=== PATIENT | female | born 1980 | race Caucasian/White ===

== ENCOUNTER 2019-08-01 09:22 | Outpatient (CLI) | payer OTHER, SELFPAY ==
--- NOTE | ~2019-08-01 | MM_ITS ---
EXAMINATION: MM screening juan alberto BI w brent HISTORY: Screening mammogram TECHNIQUE: Craniocaudal and mediolateral oblique 3-D tomosynthesis images were obtained and synthetic 2-D images were generated. CAD analysis was submitted and interpreted. COMPARISON: 04/29/2012 BREAST PARENCHYMAL COMPOSITION: There are scattered areas of fibroglandular density. FINDINGS: There is no evidence of suspicious mass, calcification, or architectural distortion to sugg est malignancy in either breast. There has been no suspicious interval change. IMPRESSION: 1. No mammographic evidence of malignancy. 2. Recommend routine screening mammography in one year. BI-RADS Category 1: Negative Reviewed, dictated and finalized at location A.
== END 2019-08-01 09:23 | disposition home or self-care (01) ==
LOC: ANHIMG 09:27
PROVIDERS: PCP Obstetrics & Gynecology; Visit Provider Obstetrics & Gynecology
DX: Z12.31 Encounter for screening mammogram for malignant neoplasm of breast (principal)
CPT/HCPCS: 77063; 77067

== ENCOUNTER 2023-12-19 01:00 | Day surgery (SDC) | payer OTHER, SELFPAY ==
[2023-11-28 15:08] VITALS: BMI 30.6
[2023-12-19 12:42] VITALS: BP 120/71; PULSE 81; RESP 16; TEMP 36.9; O2SAT 99; BMI 30.4
--- NOTE | 2023-12-19 13:04 | WPDANESEPPF ---
Anes - Initial Pre Proc Eval Procedure: Operation Date: 12/19/23 13:30 Proposed Procedures p Screening Colonoscopy - Onseimo Dickson MD Date/Time: 12/19/23 13:04 Surgeon: Onesimo Dickson MD Pre Op Diagnosis: screening neoplasm of colon Patient Data Age: 43 Gender: F Height: 1.63 m Weight: 80.4 kg Last Vital Signs Temp 98.4 F 12/19/23 12:42 Pulse 81 12/19/23 12:42 Resp 16 12/19/23 12:42 BP 120/71 12/19/23 12:42 Pulse Ox 99 12/19/23 12:42 O2 Del Method Room Air 12/19/23 12:42 Allergies Allergy/AdvReac Type Severity Reaction Status Date / Time hydroxychloroquine Allergy Unknown Rash Verified 12/19/23 12:50 Home Medications Medication Instructions Recorded Confirmed Type multivitamin (Daily Multi-Vitamin 1 tablet PO DAILY 09/04/23 12/19/23 History tablet) Patient hx anesthesia problems: none Family hx anesthesia problems: none Results Review: All pre-operative results and documents have been reviewed as part of the pre-operative evaluation. [facility] Past Medical History Medical History (Updated 09/04/23 @ 11:12 by Fern Ann APRN) Arthritis Asthma delivery delivered Post endometrial ablation syndrome Surgical History Surgical History (Updated 09/04/23 @ 10:38 by Miranda Tamayo MA) History of tubal ligation Hx of biopsy Status post dilatation and curettage Family History Family History (Updated 09/04/23 @ 10:41 by Miranda Tamayo MA) Grandparent Depression Hypertension Family history of eczema Family history of osteoarthritis Cerebrovascular accident Family history of hearing loss Mother Hypertension Patient's mother is in good health Family history of migraine headaches Sibling Asthma Patient's brother is in good health Family history of allergic disorder Family history of kidney disease Father Family history of osteoarthritis Patient's father is in good health Hypertension Malignant neoplasm of prostate Grandparent Hypertension Diabetes mellitus Heart disease Cerebrovascular accident Grandparent Hypertension Heart disease History of ETOH abuse Social History Social History (Updated 09/04/23 @ 10:44 by Miranda Tamayo MA) Years smoked: 3 Smoking status: Former smoker Tobacco type: cigarettes Alcohol intake: current Drinks per week: 4 Substance use: never Substance use type: does not use Do You Feel Safe in your Home?: Yes Lack of Transportation: No Lack of Food: Never True Current Housing: I Have Housing Concerned About Future Housing: No Difficulty Paying Gas/Electric Bills: No Difficulty Paying for Meds: No Currently Unemployed: No Education: Bachelor's Degree Difficulty w/ Childcare or Family Care: No Living arrangements: with family 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 Informed Consent: The patient's anesthetic plan and its attendant risks and benefits were discussed with the patient/family/POA. Questions were solicited and answers provided to the satisfaction of the patient/family/POA.
[2023-12-19] MEDS: LACTATED RINGERS 1,000 ML 150 ML IV CONT (13:19)
--- NOTE | 2023-12-19 13:24 | PM.HPGS ---
History of Present Illness History of Present Illness Consent: Risks, benefits, and alternatives have been discussed and questions answered. Patient agrees to proceed with procedure. Chief complaint: screening neoplasm of colon Narrative: Miranda Foley is a 43 year old female here for first screening colonoscopy Review of Systems Review of Systems: All systems reviewed & are unremarkable except as noted in HPI and below PMFSH Past Medical History Medical History (Updated 09/04/23 @ 11:12 by Fern Ann APRN) Arthritis Asthma delivery delivered Post endometrial ablation syndrome Surgical History Surgical History (Updated 09/04/23 @ 10:38 by Miranda Tamayo MA) History of tubal ligation Hx of biopsy Status post dilatation and curettage Family History Family History (Updated 09/04/23 @ 10:41 by Miranda Tamayo MA) Grandparent Depression Hypertension Family history of eczema Family history of osteoarthritis Cerebrovascular accident Family history of hearing loss Mother Hypertension Patient's mother is in good health Family history of migraine headaches Sibling Asthma Patient's brother is in good health Family history of allergic disorder Family history of kidney disease Father Family history of osteoarthritis Patient's father is in good health Hypertension Malignant neoplasm of prostate Grandparent Hypertension Diabetes mellitus Heart disease Cerebrovascular accident Grandparent Hypertension Heart disease History of ETOH abuse Social History Social History (Updated 09/04/23 @ 10:44 by Miranda Tamayo MA) Years smoked: 3 Smoking status: Former smoker Tobacco type: cigarettes Alcohol intake: current Drinks per week: 4 Substance use: never Substance use type: does not use Do You Feel Safe in your Home?: Yes Lack of Transportation: No Lack of Food: Never True Current Housing: I Have Housing Concerned About Future Housing: No Difficulty Paying Gas/Electric Bills: No Difficulty Paying for Meds: No Currently Unemployed: No Education: Bachelor's Degree Difficulty w/ Childcare or Family Care: No Living arrangements: with family 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 Gender identity (if verbalized by the patient): Female Spiritual care concerns: No Agree to blood products: Yes Meds Home Medications and Allergies Home Medications Medication Instructions Recorded Confirmed Type multivitamin (Daily Multi-Vitamin 1 tablet PO DAILY 09/04/23 12/19/23 History tablet) Allergies Allergy/AdvReac Type Severity Reaction Status Date / Time hydroxychloroquine Allergy Unknown Rash Verified 12/19/23 12:50 Vital Signs Vital Signs - 24 hr 12/19/23 12:42 Temperature 98.4 F Pulse Rate 81 Respiratory Rate 16 Blood Pressure 120/71 Pulse Oximetry 99 Oxygen Delivery Room Air Exam Const: General: comfortable and no acute distress HENMT: Face/Nose/Sinus: Normal nares present Eyes: General: appearance normal, both eyes and all related structures Neck: Neck: no JVD Resp: Auscultation: clear to auscultation bilaterally Cardio: Rate: regular rate Rhythm: regular rhythm GI: Inspection: non-distended GI Palp: Yes Soft to palpation Skin: General skin exam: normal color Neuro: General: gait normal Speech: normal speech Extrem: General: normal to inspection Psych: Mental Status: mental status grossly normal Assessment and Plan Assessment and plan (1) Screening for colon cancer: Code(s): Z12.11 - Encounter for screening for malignant neoplasm of colon Status: Acute Assessment and Plan: colonoscopy
[2023-12-19 13:41] VITALS: BP 91/49; PULSE 92; RESP 16; O2SAT 96
[2023-12-19 13:51] VITALS: BP 90/51; PULSE 81; RESP 15; O2SAT 100
[2023-12-19 14:01] VITALS: BP 93/51; PULSE 89; RESP 20; O2SAT 100
[2023-12-19 14:11] VITALS: BP 113/65; PULSE 85; RESP 18; O2SAT 100
[2023-12-19] MEDS: DICLOFENAC SODIUM 0.1% OPHTH SOLN 2.5 ML BOTTLE 1 DROP EACH EYE (14:26)
--- NOTE | 2023-12-19 14:28 | SUR.PHASEII ---
Redness and tearing noted to left eye upon awakening in recovery. New orders received for corneal abrasion protocol from Dr. Garcia (anesthesiologist).
[2023-12-19] MEDS: PROPARACAINE HCL 0.5% 15 ML OPHTH SOLN 1 DROP EACH EYE (14:36)
== END 2023-12-19 14:37 | disposition home or self-care (01) ==
PROVIDERS: PCP Nurse Practitioner Adult Health; Visit Provider Internal Medicine Gastroenterology
PROC: 0DJD8ZZ Inspection of Lower Intestinal Tract, Via Natural or Artificial Opening Endoscopic (ICD-10-PCS; CPT 45378; principal; 2023-12-19 13:30)
DX: Z12.11 Encounter for screening for malignant neoplasm of colon (principal); K64.8 Other hemorrhoids; J45.909 Unspecified asthma, uncomplicated; N99.85 Post endometrial ablation syndrome; E66.9 Obesity, unspecified; Z68.30 Body mass index [BMI] 30.0-30.9, adult; Z98.890 Other specified postprocedural states; Z98.51 Tubal ligation status; Z87.891 Personal history of nicotine dependence; Z80.42 Family history of malignant neoplasm of prostate; Z82.49 Family history of ischemic heart disease and other diseases of the circulatory system
CPT/HCPCS: 45378; A9270; J2003; J2704; J7120

== ENCOUNTER 2024-02-18 21:27 | Emergency (ER) | payer OTHER, SELFPAY ==
--- NOTE | ~2024-02-18 | US_ITS ---
Pelvic ultrasound. Clinical History: Torsion Technique: Realtime transabdominal and transvaginal scanning of the pelvis was performed. Color flow Doppler and Doppler spectral analysis were performed. Findings: The uterus is anteverted. The endometrial stripe has a thickness of 5 mm. No focal mass is identified. Small fluid present in the lower uterine segment/cervical canal. The right ovary measures 4.0 x 4.0 x 3.9 cm. Simple right ovarian cyst measures 3.8 cm in maximum titi meter.. The left ovary measures 5.5 x 4.4 x 6.1 cm. Large left ovarian cyst measures 5.2 x 3.9 x 5.8 cm, with a septation present.. Vascular flow present in both ovaries on Doppler spectral analysis. There is no evidence of free fluid in the cul de sac. Impression: No evidence of torsion. 5.2 x 3.9 x 5.8 cm septated left ovarian cyst. Follow-up ultrasound in 6-8 weeks recommended to reass ess. 3.8 cm simple right ovarian cyst. Reviewed, dictated and finalized at location M. ISITION CONSULTANT Impression: No evidence of torsion. 5.2 x 3.9 x 5.8 cm septated left ovarian cyst. Follow-up ultrasound in 6-8 week s recommended to reassess. 3.8 cm simple right ovarian cyst.
--- NOTE | ~2024-02-18 | CT_ITS ---
EXAMINATION: CT abdomen pelvis w con DATE: 02/19/2024 00:02 INDICATION: Left lower quadrant abdominal pain. TECHNIQUE: Computed tomography (CT) of the abdomen and pelvis was performed with 100 mL Omnipaque 350 intravenous contrast. Automated exposure control and iterative reconstruction technique were employe d. The dose-length product was 806.23 mGy-cm. COMPARISON: None. FINDINGS: The visualized portions of the lung bases demonstrate minimal atelectasis. No pleural effus ion. The heart size is normal. No pericardial effusion. The liver, gallbladder, spleen, pancreas, adr enal glands, and kidneys are normal. There are no dilated loops of bowel. The appendix is normal. The re are no pathologically enlarged lymph nodes. There is physiologic fluid in the pelvis. There is a 3 .3 cm cyst in right ovary. There is a 5.7 cm cyst with thin septation in left ovary. There is moderat e thoracic spondylosis and mild lumbar spondylosis. IMPRESSION: 1. 3.3 cm cyst in right ovary, likely a follicular cyst. 2. 5.7 cm cyst with septation in left ovary, likely benign. Torsion is not excluded. Pelvis ultrasoun d is recommended. Reviewed, dictated and finalized at location A. RISK AND ASSURANCE MANAGER IMPRESSION: 1. 3.3 cm cyst in right ovary, likely a follicular cyst. 2. 5.7 cm cyst with septation in left ovary, likely benign. Torsion is not excl uded. Pelvis ultrasound is recommended.
[2024-02-18 21:29] VITALS: BP 133/83; PULSE 84; RESP 16; TEMP 36.1; O2SAT 100
[2024-02-18 22:21] LABS: Basophils Percent Auto 0.2 % (0.2-1.2); Eosinophils Percent Auto 0.4 % (0-4.4); Hematocrit 41.1 % (37.0-47.0); Immature Granulocyte Absolute 0.04 K/mm3 (0.00-0.031); Immature Granulocyte Percent A 0.4 % (0-0.5); Lymphocytes Absolute Auto 1.88 K/mm3 (0.9-3.2); Lymphocytes Percent Auto 19.3 % (18.3-44.2); Mean Corpuscular HGB Conc 34.1 g/dl (32-36); Mean Corpuscular Hemoglobin 29.4 pg (26-34); Mean Corpuscular Volume 86.2 fl (80-100); Monocytes Absolute Auto 0.4 K/mm3 (0.1-0.6); Neutrophils Absolute Auto 7.4 K/mm3 (1.3-6.7); Neutrophils Percent Auto 75.7 % (45.5-73.1); Platelet Count Result 315 k/mm3 (150-375); Red Blood Count 4.77 M/mm3 (4.2-5.4); Red Cell Distribution Width 12.4 % (11.5-14.5); White Blood Count 9.7 K/mm3 (4.5-10.0)
[2024-02-18 22:31] LABS: Alanine Aminotransferase 43 U/L (6-35); Albumin Level 4.5 g/dL (3.5-5.1); Alkaline Phosphatase 86 U/L (38-126); Anion Gap 5 mmol/L (4-12); Aspartate Amino Transferase 32 U/L (14-36); Bilirubin,Total 0.5 mg/dL (0.2-1.3); Blood Urea Nitrogen 8 mg/dL (7-17); Calcium 9.1 mg/dL (8.4-10.2); Carbon Dioxide 24 mmol/L (22-30); Chloride 105 mmol/L (98-107); Estimated CRCL calculation 105 ml/min; Estimated Glomerular Filt Rate > 60; Glucose 104 mg/dL (65-110); Lipase 45 U/L (23-300); Potassium 3.7 mmol/L (3.4-5.0); Sodium 134 mmol/L (137-145)
[2024-02-18 22:41] LABS: BEDSIDEPREGUCG Negative (Negative)
[2024-02-18 22:55] LABS: Add Urine Microscopic? NO; Appearance Urine Clear (Clear); Bilirubin Urine Negative (Negative); Blood Urine Negative (Negative); Color Urine Yellow (Yellow); Glucose Urine UA Negative (Negative); Ketones Urine 1+ mg/dL (Negative); Leukocyte Esterase Ur Negative LEU/UL (Negative); Nitrate Urine Negative (Negative); Protein Urine Negative (Negative); Urobilinogen Urine 0.2 mg/dL (<2.0)
--- NOTE | 2024-02-19 00:12 | ED.ABDPAIN ---
HPI - Abdominal Pain General Chief Complaint: Abdominal Pain <NELY Franklin Last Filed: 02/20/24 17:16> Stated Complaint: abd pain left <NELY Franklin Last Filed: 02/20/24 17:16> Time Seen by Provider: 02/18/24 23:29 <NELY Franklin Last Filed: 02/20/24 17:16> Source: patient <NELY Franklin Last Filed: 02/20/24 17:16> Mode of arrival: ambulatory <NELY Franklin Last Filed: 02/20/24 17:16> Limitations: no limitations <NELY Franklin Last Filed: 02/20/24 17:16> History of Present Illness HPI narrative: This is a 43-year-old female that presents to the emergency department for left lower quadrant abdominal pain. Reports the pain is sharp in nature. Unrelieved with [id number] Tylenol and ibuprofen. Denies fevers, vomiting, dysuria, or hematuria. <NELY Franklin Last Filed: 02/20/24 17:16> Related Data Home Medications: Home Medications ?Medication ?Instructions ?Recorded ?Confirmed ?Last Taken ?Type multivitamin (Daily Multi-Vitamin 1 tablet PO DAILY 09/04/23 02/20/24 12/17/23 History tablet) L.acidophil,rhamnosus-B.breve,longum 1 cap PO DAILY 02/20/24 02/20/24 Unknown History 20 billion cell sprinkle capsule (Probiotic) omega-3 fatty acids 1,000 mg 1,000 mg PO DAILY 02/20/24 02/20/24 Unknown History capsule <NELY Franklin Last Filed: 02/20/24 17:16> Allergies/Adverse Reactions: Allergies Allergy/AdvReac Type Severity Reaction Status Date / Time hydroxychloroquine Allergy Unknown Rash Verified 02/20/24 12:52 <ENLY Franklin Last Filed: 02/20/24 17:16> Review of Systems Review of Systems: CONSTITUTIONAL: Denies fever GASTROINTESTINAL: Reports abdominal pain, nausea. Denies vomiting, or diarrhea. GENITOURINARY: Denies dysuria or hematuria. <Marielle Diaz PA-C - Last Filed: 02/20/24 17:16> All systems reviewed & are unremarkable except as noted in HPI and below <Marielle Diaz PA-C - Last Filed: 02/20/24 17:16> COUNTS INCLUDE 234 BEDS AT THE [facility] Past Medical History Medical History: Medical History (Updated 02/20/24 @ 17:16 by Marielle Diaz PA-C) Post endometrial ablation syndrome delivery delivered Arthritis Asthma <Marielle Diaz PA-C - Last Filed: 02/20/24 17:16> Surgical History Surgical History: Surgical History (Updated 09/04/23 @ 10:38 by Miranda Tamayo MA) Hx of biopsy Status post dilatation and curettage History of tubal ligation <Marielle Diaz PA-C - Last Filed: 02/20/24 17:16> Family History Family History: Family History (Updated 09/04/23 @ 10:41 by Miranda Tamayo MA) Grandparent Depression Hypertension Family history of eczema Family history of osteoarthritis Cerebrovascular accident Family history of hearing loss Mother Hypertension Patient's mother is in good health Family history of migraine headaches Sibling Asthma Patient's brother is in good health Family history of allergic disorder Family history of kidney disease Father Family history of osteoarthritis Patient's father is in good health Hypertension Malignant neoplasm of prostate Grandparent Hypertension Diabetes mellitus Heart disease Cerebrovascular accident Grandparent Hypertension Heart disease History of ETOH abuse <Marielle Diaz PA-C - Last Filed: 02/20/24 17:16> Social History Social History: Social History (Updated 09/04/23 @ 10:44 by Miranda Tamayo MA) Years smoked: 3 Smoking status: Never smoker Tobacco type: cigarettes Alcohol intake: current Drinks per week: 2 Substance use: never Substance use type: does not use Do You Feel Safe in your Home?: Yes Lack of Transportation: No Lack of Food: Never True Current Housing: I Have Housing Concerned About Future Housing: No Difficulty Paying Gas/Electric Bills: No Difficulty Paying for Meds: No Currently Unemployed: No Education: Bachelor's Degree Difficulty w/ Childcare or Family Care: No Living arrangements: with family 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 HEAD: Normocephalic, atraumatic. EYES: EOMI. CHEST: Clear to auscultation. No respiratory distress. No wheezes rales or rhonchi HEART: Regular rate and rhythm. No murmur heard. Normal peripheral pulses. ABDOMEN: Soft, nondistended, normal active bowel sounds. Tender to palpation in the left lower quadrant, without guarding EXTREMITIES: Normal range of motion. No edema. SKIN: Warm, dry, no rash. NEURO: No focal deficits. Alert and oriented x3. PSYCH: Normal mood and affect <Marielle Diaz PA-C - Last Filed: 02/20/24 17:16> Course OFFC SPEC/PA Physician Supervision For this patient encounter, I reviewed the OFFC SPEC or PA documentation, treatment plan, and medical decision making; and I had [id number] time with this patient. <Keith Richards MD - Last Filed: 02/19/24 06:15> Vital Signs Vital signs: Vital Signs Temperature 97.0 F L 02/18/24 21:29 Pulse Rate 84 02/18/24 21:29 Respiratory Rate 16 02/18/24 21:29 Blood Pressure 133/83 02/18/24 21:29 Pulse Oximetry 100 02/18/24 21:29 Oxygen Delivery Room Air 02/18/24 21:29 Temperature 97.0 F L 02/18/24 21:29 Pulse Rate 75 02/19/24 06:19 Respiratory Rate 15 02/19/24 06:19 Blood Pressure 128/76 02/19/24 06:19 Pulse Oximetry 100 02/19/24 06:19 Oxygen Delivery Room Air 02/18/24 21:29 <Marielle Diaz PA-C - Last Filed: 02/20/24 17:16> Vital Signs Temperature 97.0 F L 02/18/24 21:29 Pulse Rate 84 02/18/24 21:29 Respiratory Rate 16 02/18/24 21:29 Blood Pressure 133/83 02/18/24 21:29 Pulse Oximetry 100 02/18/24 21:29 Oxygen Delivery Room Air 02/18/24 21:29 Temperature 97.0 F L 02/18/24 21:29 Pulse Rate 75 02/19/24 06:19 Respiratory Rate 15 02/19/24 06:19 Blood Pressure 128/76 02/19/24 06:19 Pulse Oximetry 100 02/19/24 06:19 Oxygen Delivery Room Air 02/18/24 21:29 <Keith Richards MD - Last Filed: 02/19/24 06:15> MDM - Abdominal Pain MDM Narrative Medical decision making narrative: patient presents the emergency department for left lower abdominal pain ongoing since this morning. She is afebrile and nontoxic appearing. Her vitals are stable. Cbc without leukocytosis. Metabolic panel without concerning findings. Urine without evidence of infection. test negative. CT abdomen pelvis shows bilateral ovarian cyst. Recommend pelvic ultrasound. <Marielle Diaz PA-C - Last Filed: 02/20/24 17:16> Differential Diagnosis Differential diagnosis: Likely calculus of kidney, constipation, diverticulitis and other (uti, ovarian cyst rupture, ovarian torsion) <Marielle Diaz PA-C - Last Filed: 02/20/24 17:16> Lab Data Attestation: I reviewed the patient's lab results. <Marielle Diaz PA-C - Last Filed: 02/20/24 17:16> Result diagrams: 02/18/24 22:06 02/18/24 22:06 <Marielle Diaz PA-C - Last Filed: 02/20/24 17:16> Labs: Lab Results 02/18/24 02/18/24 Range/Units 22:06 22:39 WBC 9.7 (4.5-10.0) K/mm3 RBC 4.77 (4.2-5.4) M/mm3 Hgb 14.0 (12.0-15.0) g/dL Hct 41.1 (37.0-47.0) % MCV 86.2 (80-100) fl MCH 29.4 (26-34) pg MCHC 34.1 (32-36) g/dl RDW 12.4 (11.5-14.5) % Plt Count 315 (150-375) k/mm3 MPV 9.0 (7.4-10.4) fl Immature Gran % (Auto) 0.4 (0-0.5) % Neut % (Auto) 75.7 H (45.5-73.1) % Lymph % (Auto) 19.3 (18.3-44.2) % [place] % (Auto) 4.0 (2.6-8.5) % Eos % (Auto) 0.4 (0-4.4) % Baso % (Auto) 0.2 (0.2-1.2) % Lymph # (Auto) 1.88 (0.9-3.2) K/mm3 [place] # (Auto) 0.4 (0.1-0.6) K/mm3 Eos # (Auto) 0.0 (0-0.3) K/mm3 Baso # (Auto) 0.0 (0.0-0.1) K/mm3 Abs Immat Gran (auto) 0.04 H (0.00-0.031) K/mm3 Absolute Neuts (auto) 7.4 H (1.3-6.7) K/mm3 Absolute Nucleated RBC 0.000 (0.0-0.012) K/mm3 Nucleated RBC % 0.0 (0.0-0.2) % Sodium 134 L (137-145) mmol/L Potassium 3.7 (3.4-5.0) mmol/L Chloride 105 (98-107) mmol/L Carbon Dioxide 24 (22-30) mmol/L Anion Gap 5 (4-12) mmol/L BUN 8 (7-17) mg/dL Creatinine 0.60 L (0.7-1.0) mg/dL Estim Creat Clear Calc 105 ml/min Estimated GFR > 60 (59 - ) Glucose 104 (65-110) mg/dL Calcium 9.1 (8.4-10.2) mg/dL Total Bilirubin 0.5 (0.2-1.3) mg/dL AST 32 (14-36) U/L ALT 43 H (6-35) U/L Alkaline Phosphatase 86 (38-126) U/L Total Protein 8.0 (6.3-8.2) g/dL Albumin 4.5 (3.5-5.1) g/dL Lipase 45 (23-300) U/L Urine Color Yellow (Yellow) Urine Appearance Clear (Clear) Urine pH 6.0 (5.0-9.0) Ur Specific [place] 1.010 (1.001-1.035) Urine Protein Negative (Negative) mg/dL Urine Glucose (UA) Negative (Negative) mg/dL Urine Ketones 1+ H (Negative) mg/dL Ur Blood (Man) Negative (Negative) Urine Nitrate Negative (Negative) Urine Bilirubin Negative (Negative) Urine Urobilinogen 0.2 (<2.0) mg/dL Leukocyte Esterase Rfl Negative (Negative) NONI/UL POC Urine HCG, Qual Negative (Negative) <Marielle Diaz PA-C - Last Filed: 02/20/24 17:16> Lab Results 02/18/24 02/18/24 Range/Units 22:06 22:39 WBC 9.7 (4.5-10.0) K/mm3 RBC 4.77 (4.2-5.4) M/mm3 Hgb 14.0 (12.0-15.0) g/dL Hct 41.1 (37.0-47.0) % MCV 86.2 (80-100) fl MCH 29.4 (26-34) pg MCHC 34.1 (32-36) g/dl RDW 12.4 (11.5-14.5) % Plt Count 315 (150-375) k/mm3 MPV 9.0 (7.4-10.4) fl Immature Gran % (Auto) 0.4 (0-0.5) % Neut % (Auto) 75.7 H (45.5-73.1) % Lymph % (Auto) 19.3 (18.3-44.2) % [place] % (Auto) 4.0 (2.6-8.5) % Eos % (Auto) 0.4 (0-4.4) % Baso % (Auto) 0.2 (0.2-1.2) % Lymph # (Auto) 1.88 (0.9-3.2) K/mm3 [place] # (Auto) 0.4 (0.1-0.6) K/mm3 Eos # (Auto) 0.0 (0-0.3) K/mm3 Baso # (Auto) 0.0 (0.0-0.1) K/mm3 Abs Immat Gran (auto) 0.04 H (0.00-0.031) K/mm3 Absolute Neuts (auto) 7.4 H (1.3-6.7) K/mm3 Absolute Nucleated RBC 0.000 (0.0-0.012) K/mm3 Nucleated RBC % 0.0 (0.0-0.2) % Sodium 134 L (137-145) mmol/L Potassium 3.7 (3.4-5.0) mmol/L Chloride 105 (98-107) mmol/L Carbon Dioxide 24 (22-30) mmol/L Anion Gap 5 (4-12) mmol/L BUN 8 (7-17) mg/dL Creatinine 0.60 L (0.7-1.0) mg/dL Estim Creat Clear Calc 105 ml/min Estimated GFR > 60 (59 - ) Glucose 104 (65-110) mg/dL Calcium 9.1 (8.4-10.2) mg/dL Total Bilirubin 0.5 (0.2-1.3) mg/dL AST 32 (14-36) U/L ALT 43 H (6-35) U/L Alkaline Phosphatase 86 (38-126) U/L Total Protein 8.0 (6.3-8.2) g/dL Albumin 4.5 (3.5-5.1) g/dL Lipase 45 (23-300) U/L Urine Color Yellow (Yellow) Urine Appearance Clear (Clear) Urine pH 6.0 (5.0-9.0) Ur Specific Elmer 1.010 (1.001-1.035) Urine Protein Negative (Negative) mg/dL Urine Glucose (UA) Negative (Negative) mg/dL Urine Ketones 1+ H (Negative) mg/dL Ur Blood (Man) Negative (Negative) Urine Nitrate Negative (Negative) Urine Bilirubin Negative (Negative) Urine Urobilinogen 0.2 (<2.0) mg/dL Leukocyte Esterase Rfl Negative (Negative) NONI/UL POC Urine HCG, Qual Negative (Negative) <Keith Richards MD - Last Filed: 02/19/24 06:15> Imaging Data Radiologist's impression: ITS Impressions Abdomen/Pelvis CT 02/19/24 00:03 IMPRESSION: 1. 3.3 cm cyst in right ovary, likely a follicular cyst. 2. 5.7 cm cyst with septation in left ovary, likely benign. Torsion is not excluded. Pelvis ultrasound is recommended. Pelvic/Transvag US 02/19/24 06:04 Impression: No evidence of torsion. 5.2 x 3.9 x 5.8 cm septated left ovarian cyst. Follow-up ultrasound in 6-8 weeks recommended to reassess. 3.8 cm simple right ovarian cyst. <Marielle Diaz PA-C - Last Filed: 02/20/24 17:16> ITS Impressions Abdomen/Pelvis CT 02/19/24 00:03 IMPRESSION: 1. 3.3 cm cyst in right ovary, likely a follicular cyst. 2. 5.7 cm cyst with septation in left ovary, likely benign. Torsion is not excluded. Pelvis ultrasound is recommended. Pelvic/Transvag US 02/19/24 06:04 Impression: No evidence of torsion. 5.2 x 3.9 x 5.8 cm septated left ovarian cyst. Follow-up ultrasound in 6-8 weeks recommended to reassess. 3.8 cm simple right ovarian cyst. <Keith Richards MD - Last Filed: 02/19/24 06:15> Critical Care Time Critical Care Time Critical Care Time: No <Marielle Diaz PA-C - Last Filed: 02/20/24 17:16> Discharge Plan Discharge Clinical Impression: Ovarian cyst Qualifiers: Laterality: left Qualified Code(s): N83.202 - Unspecified ovarian cyst, left side <Marielle Diaz PA-C - Last Filed: 02/20/24 17:16> Patient Disposition: Home, Self-Care <Marielle Diaz PA-C - Last Filed: 02/20/24 17:16> Condition: Stable <Marielle Diaz PA-C - Last Filed: 02/20/24 17:16> Instructions: Ovarian Cyst (ED) <Marielle Diaz PA-C - Last Filed: 02/20/24 17:16> Additional Instructions: Return to the ER if you experience fever, abdominal pain with nausea and vomiting, you are unable to keep down liquids or solids, or any other symptoms that are concerning to you Over the counter pain medication as needed. Prescribed pain medication as needed Follow up with your honey liquefier <Marielle Diaz PA-C - Last Filed: 02/20/24 17:16> Patient Language: Japanese <Marielle Diaz PA-C - Last Filed: 02/20/24 17:16> Prescriptions: New hydrocodone-acetaminophen 5-325 mg tablet 1 tablet PO Q6H PRN (Reason: pain) Qty: 14 0RF No Action multivitamin [Daily Multi-Vitamin] Tablet 1 tablet PO DAILY Probiotic 20 billion cell capsule, sprinkle 1 cap PO DAILY omega-3 fatty acids 1,000 mg capsule 1,000 mg PO DAILY <Marielle Diaz PA-C - Last Filed: 02/20/24 17:16> Follow-up/Referrals: Kwesi Fernandez MD [Physician] - Fern Ann APRN [Primary Care Provider] - <Marielle Diaz PA-C - Last Filed: 02/20/24 17:16> Time of Disposition: 06:14 <Marielle Diaz PA-C - Last Filed: 02/20/24 17:16> 06:14 <Keith Richards MD - Last Filed: 02/19/24 06:15>
[2024-02-19] MEDS: MORPHINE SULFATE (*CRX) 4 MG/ML INJ IV PUSH (00:19)
[2024-02-19] MEDS: ONDANSETRON INJ 4 MG/2 ML VIAL IV PUSH (00:20)
[2024-02-19 02:17] VITALS: BP 130/72; PULSE 78; RESP 15; O2SAT 100
[2024-02-19 06:19] VITALS: BP 128/76; PULSE 75; RESP 15; O2SAT 100
== END 2024-02-19 06:20 | disposition home or self-care (01) ==
PROVIDERS: Emergency Provider Physician Assistant; PCP Nurse Practitioner Adult Health
DX: N83.202 Unspecified ovarian cyst, left side (principal); N83.291 Other ovarian cyst, right side; J45.909 Unspecified asthma, uncomplicated; M19.90 Unspecified osteoarthritis, unspecified site; Z87.891 Personal history of nicotine dependence
CPT/HCPCS: 36415; 74177; 76830; 76856; 80053; 81003; 81025; 83690; 85025; 96374; 96375; 99284; J2270; J2405; Q9967

== ENCOUNTER 2024-02-21 14:58 | Outpatient (CLI) | payer OTHER, SELFPAY | END 2024-02-21 14:59 | disposition home or self-care (01) | PROVIDERS: PCP Nurse Practitioner Adult Health; Visit Provider Obstetrics & Gynecology | DX: N83.209 Unspecified ovarian cyst, unspecified side (principal) | CPT/HCPCS: 36415; 86850; 86900; 86901 ==

== ENCOUNTER 2024-02-25 01:00 | Day surgery (SDC) | payer OTHER, SELFPAY ==
[2024-02-20 12:58] VITALS: BMI 31.3
--- NOTE | 2024-02-20 12:59 | PC.NURSE ---
Addendum entered by Navneet Russell RN 02/22/24 13:56: Patient informed she was rescheduled for Sunday02-25-2024 at 1230 and to arrive at 1030. Original Note: Report to the Outpatient Waiting Room, entrance under the green pavilion located off [facility], at time _1130_ on date _[id number]_. Planned Procedure Time: _130pm_.? Time changes happen often and if your time is changed the preop area will call you the afternoon before. - You and your visitor will be asked to self-screen and do not enter if you have any COVID symptoms. Please call surgeon if you need to reschedule. - A mask is optional within the hospital at this time. Patients may have clear liquids (water, carbonated beverages, clear teas, apple juice) until 3 hours prior to surgery with a maximum of 20 ounces. - No food from midnight until time of surgery and no smoking. This includes no chewing gum, candy or mints. Take only the following medications with a SIP of water on the morning of surgery: ___Pain med if needed. DO NOT STOP ANY OF YOUR OTHER PRESCRIPTION MEDICATIONS PRIOR TO SURGERY EXCEPT THE FOLLOWING Medications to discontinue per physician ____Probiotic, Bethel 3 and Multivitamin Date to take last dose____Stop now. Please no make-up, nail v[place] citizen, hairspray, perfume, deodorant, or body powder the day of surgery.? No jewelry (including any body piercings) or valuables the day of surgery, leave them at home.? Please take a shower or bath the night before, or the morning of, surgery with an antibacterial soap.? Wear comfortable, loose fitting clothing.? - Jewelry must be removed prior to entering the operating room.? Rings and piercings that are not removed may be cut off. - The hospital will not accept responsibility for valuables.? - Please leave all valuables, including medications, at home the day of surgery. If you are going home after surgery, a licensed trash truck driver must drive you home.? - NO public transportation without another adult if you receive anesthesia. - We recommend that an adult stay with you for 24 hours following discharge. - We also recommend that you do not drive, make important decision, drink alcoholic beverages, or take any drugs that were not prescribed by your health care provider for at least 24 hours after your discharge time. Follow any additional instructions given to you from your surgeon. Telephone instructions given to _Miranda___and asked if any additional questions and then verbalized understanding. Patient advised to call surgeon office or pre surgery nurse liaison [phone] if any additional questions.
--- NOTE | 2024-02-22 06:36 | PM.IMHP ---
H&P: HPI History of Present Illness Date/Time: 02/22/24 06:36 Chief Complaint: Severe pelvic pain with a left complex ovarian cyst Narrative: Patient is admitted for laparoscopic left salpingo-oophorectomy secondary to left cyst. She has had a relatively care home discomfort with this ovary. She was through the ER CT and ultrasound showed complex left cyst she would like this removed and will undergo the procedure. Risks and benefits reviewed including not exclusive of , aspiration bleeding perforation to bowel bladder internal with she received the [employer] handout entitled laparoscopy. She had all questions answered. She asked to proceed. Review of Systems Review of Systems: CONSTITUTIONAL: Denies fever GASTROINTESTINAL: Reports abdominal pain, nausea. Denies vomiting, or diarrhea. GENITOURINARY: Denies dysuria or hematuria. All systems reviewed & are unremarkable except as noted in HPI and below PMFSH Past Medical History Medical History Post endometrial ablation syndrome delivery delivered Arthritis Asthma Surgical History Surgical History Hx of biopsy Status post dilatation and curettage History of tubal ligation Family History Family History Grandparent Depression Hypertension Family history of eczema Family history of osteoarthritis Cerebrovascular accident Family history of hearing loss Mother Hypertension Patient's mother is in good health Family history of migraine headaches Sibling Asthma Patient's brother is in good health Family history of allergic disorder Family history of kidney disease Father Family history of osteoarthritis Patient's father is in good health Hypertension Malignant neoplasm of prostate Grandparent Hypertension Diabetes mellitus Heart disease Cerebrovascular accident Grandparent Hypertension Heart disease History of ETOH abuse Social History Social History Years smoked: 3 Smoking status: Never smoker Tobacco type: cigarettes Alcohol intake: current Drinks per week: 2 Substance use: never Substance use type: does not use Do You Feel Safe in your Home?: Yes Lack of Transportation: No Lack of Food: Never True Current Housing: I Have Housing Concerned About Future Housing: No Difficulty Paying Gas/Electric Bills: No Difficulty Paying for Meds: No Currently Unemployed: No Education: Bachelor's Degree Difficulty w/ Childcare or Family Care: No Living arrangements: with family 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 Gender identity (if verbalized by the patient): Female Spiritual care concerns: No Agree to blood products: Yes Meds Home Medications and Allergies Home Medications ?Medication ?Instructions ?Recorded ?Confirmed ?Type multivitamin (Daily Multi-Vitamin 1 tablet PO DAILY 09/04/23 02/20/24 History tablet) hydrocodone 5 mg-acetaminophen 325 1 tablet PO Q6H PRN pain #14 tabs 02/19/24 02/20/24 Rx mg tablet L.acidophil,rhamnosus-B.breve,longum 1 cap PO DAILY 02/20/24 02/20/24 History 20 billion cell sprinkle capsule (Probiotic) omega-3 fatty acids 1,000 mg 1,000 mg PO DAILY 02/20/24 02/20/24 History capsule Allergies Allergy/AdvReac Type Severity Reaction Status Date / Time hydroxychloroquine Allergy Unknown Rash Verified 02/20/24 12:52 Exam Const: General: cooperative, healthy appearing and comfortable Nutritional Appearance: average body habitus Orientation/consciousness: oriented to person, oriented to place and oriented to time HENMT: Head: normal to inspection Resp: Effort & Inspection: normal respiratory effort Cardio: Rate: regular rate Rhythm: regular rhythm Heart sounds: S1 normal heart sound present and S2 normal heart sound present GI: Inspection: normal to inspection : External Female Exam: normal external appearance Speculum Exam - Vagina: normal appearance of the vagina Speculum Exam - Cervix: normal appearance of the cervix Bimanual exam- vagina & uterus: Uterine tenderness Bimanual Exam- Adnexa, other: tender on the left and Adnexal mass present on the left tender Assessment and Plan Assessment and plan (1) Left ovarian cyst: Code(s): N83.202 - Unspecified ovarian cyst, left side Status: Acute Plan Proceed with laparoscopic left salpingo-oophorectomy
--- NOTE | 2024-02-22 06:39 | WPDHPUPDATE1 ---
History and Physical Update Update Date/Time: 02/22/24 06:39 History and Physical has been reviewed, including an updated exam of the patient. There are NO changes in the patient's condition. Risks, benefits, and alternatives have been discussed and questions answered. Patient agrees to proceed with procedure.
[2024-02-25] VITALS (9 sets, daily range): BP systolic 99–124; BP diastolic 46–63; PULSE 55–87; RESP 10–20; TEMP 36.2–36.7; O2SAT 94–100
[2024-02-25] MEDS: ACETAMINOPHEN 500 MG TABLET 1000 MG PO (11:10)
[2024-02-25] MEDS: KETOROLAC 15 MG/ML VIAL (*BKC) IV PUSH (11:10)
--- NOTE | 2024-02-25 11:46 | WPDHPUPDATE1 ---
History and Physical Update Update Date/Time: 02/25/24 11:46 History and Physical has been reviewed, including an updated exam of the patient. There are NO changes in the patient's condition. Risks, benefits, and alternatives have been discussed and questions answered. Patient agrees to proceed with procedure.
--- NOTE | 2024-02-25 11:49 | P.PNAN_ITS ---
Anes - Initial Pre Proc Eval Procedure: Operation Date: 02/25/24 12:30 Proposed Procedures p Laparoscopic Left Salpingo-Oophorectomy - Kwesi Diaz MD Date/Time: 02/25/24 11:49 Surgeon: Kwesi Diaz MD Pre Op Diagnosis: Left Ovarian Cyst Patient Data Age: 43 Gender: F Height: 1.63 m Weight: 82.7 kg Allergies Allergy/AdvReac Type Severity Reaction Status Date / Time hydroxychloroquine Allergy Unknown Rash Verified 02/20/24 12:52 Home Medications ?Medication ?Instructions ?Recorded ?Confirmed ?Type multivitamin (Daily Multi-Vitamin 1 tablet PO DAILY 09/04/23 02/20/24 History tablet) hydrocodone 5 mg-acetaminophen 325 1 tablet PO Q6H PRN pain #14 tabs 02/19/24 02/20/24 Rx mg tablet L.acidophil,rhamnosus-B.breve,longum 1 cap PO DAILY 02/20/24 02/20/24 History 20 billion cell sprinkle capsule (Probiotic) omega-3 fatty acids 1,000 mg 1,000 mg PO DAILY 02/20/24 02/20/24 History capsule hydrocodone 5 mg-acetaminophen 325 1 tablet PO Q4H PRN pain #20 tabs 02/22/24 Rx mg tablet Patient hx anesthesia problems: none Family hx anesthesia problems: none Results Review: All pre-operative results and documents have been reviewed as part of the pre- operative evaluation. [facility] Past Medical History Medical History Post endometrial ablation syndrome delivery delivered Arthritis Asthma Surgical History Surgical History Hx of biopsy Status post dilatation and curettage History of tubal ligation Family History Family History Grandparent Depression Hypertension Family history of eczema Family history of osteoarthritis Cerebrovascular accident Family history of hearing loss Mother Hypertension Patient's mother is in good health Family history of migraine headaches Sibling Asthma Patient's brother is in good health Family history of allergic disorder Family history of kidney disease Father Family history of osteoarthritis Patient's father is in good health Hypertension Malignant neoplasm of prostate Grandparent Hypertension Diabetes mellitus Heart disease Cerebrovascular accident Grandparent Hypertension Heart disease History of ETOH abuse Social History Social History Years smoked: 3 Smoking status: Never smoker Tobacco type: cigarettes Alcohol intake: current Drinks per week: 2 Substance use: never Substance use type: does not use Do You Feel Safe in your Home?: Yes Lack of Transportation: No Lack of Food: Never True Current Housing: I Have Housing Concerned About Future Housing: No Difficulty Paying Gas/Electric Bills: No Difficulty Paying for Meds: No Currently Unemployed: No Education: Bachelor's Degree Difficulty w/ Childcare or Family Care: No Living arrangements: with family 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 Gender identity (if verbalized by the patient): Female Spiritual care concerns: No Agree to blood products: Yes Anes - Eval Final PreProcedure Day of Procedure 02/25/24 11:49 Patient weight: obese Heart: regular rate and rhythm Lungs: clear to auscultation Airway: Mallampati scale class II Neurological: alert and oriented Last oral intake: >/= 8 hours ASA classification: II Emergent: no Anesthetic plan: proceed Anesthesia type and monitoring: general ETT and standard monitoring Results Review: All pre-operative results and documents have been reviewed as part of the pre- operative evaluation. Informed Consent: The patient's anesthetic plan and its attendant risks and benefits were discussed with the patient/family/POA. Questions were solicited and answers provided to the satisfaction of the patient/family/POA.
[2024-02-25] MEDS: ceFAZolin 2 GM/D5W 50 ML 2 GM/50 ML BAG IVPB (11:56)
[2024-02-25 12:08] LABS: BEDSIDEPREGUCG Negative (Negative)
--- NOTE | 2024-02-25 12:29 | P.OP_ITS ---
Procedure Note - Detailed Date of Procedure 02/25/24 Pre-op Diagnosis Left Ovarian Cyst Post-op Diagnosis Same Procedure Performed Laparoscopic left salpingo-oophorectomy Surgeon Kwesi Diaz MD Anesthesia General Indications 43-year-old female with complex left ovarian cyst and pelvic pain Findings Normal-appearing uterus right ovary and tube complex left ovarian cyst Description of Procedure Patient was prepped draped in the normal sterile fashion placed in the dorsal lithotomy position. Under excellent general trach anesthesia weighted speculum placed in posterior fornix vagina. Anterior lip of the cervix grasped with single-tooth tenaculum. Lind's cannula inserted attached to the single-tooth to be used later for uterine manipulation. After emptying the bladder clear urine the weighted speculum was removed. The gloves were changed. A supraumbilical incision made. Veress needle passed in the abdomen. Abdomen filled with CO2 gas [id number]. The 5mm trocar advanced with the Optiview in no injury seen. Patient placed in Trendelenburg and a suprapubic incision made. The 5mm trocar advanced under direct visualization assuring no injury. A left lower quadrant incision made and the 8mm trocar advanced under direct visualization assuring no injury. A large complex left ovarian cyst was seen and had appearance of partially torsed. The infundibulopelvic structure was skeletonized clamping burning cutting and then the cyst was placed in an Endo- Catch. This was removed through the left lower quadrant incision. Hemostasis was assured. The instruments were withdrawn the gas removed from the abdomen and the trocars removed. The incisions closed with 4 Monocryl and glue. Blood loss was estimated 5cc. All sponge, needle, instrument counts were correct. There were no immediate complications Estimated Blood Loss 5 Drains No Pathology Yes Complications No immediate complications Disposition PACU
[2024-02-25] MEDS: fentaNYL CITRATE INJ (*CRX) 100 MCG/2 ML VIAL 25 MCG IV PUSH ×4 (12:49→13:20)
[2024-02-25] MEDS: LACTATED RINGERS 1,000 ML 30 ML IV CONT (12:49)
== END 2024-02-25 14:40 | disposition home or self-care (01) ==
PROVIDERS: PCP Nurse Practitioner Adult Health; Visit Provider Obstetrics & Gynecology
PROC: (CPT 49320; principal; 2024-02-25 12:30)
DX: D27.1 Benign neoplasm of left ovary (principal); E66.9 Obesity, unspecified; Z68.31 Body mass index [BMI] 31.0-31.9, adult
CPT/HCPCS: 58661; 88305; A9270; J0690; J1100; J1885; J2250; J2405; J2704; J3010; J7030; J7120

== ENCOUNTER 2024-09-17 09:18 | Outpatient (CLI) | payer OTHER, SELFPAY ==
--- OUTSIDE RECORDS SUMMARY | 2024-09-17 09:22 | XMS_ITS | Clinical Summary ---
Author Organization [facility] Address [address] [place] [address] Care Team Providers Care Immigration Coordinator Name Role Phone Fern Ann NP Primary Care Provider [phone] Allergies Active Allergy Reactions Criticality Noted Date Comments Hydroxychloroquine Rash Medium 09/29/2022 Medications clobetasoL (TEMOVATE) 0.05 % creamIndications: Skin Inflammation Apply topically 3 (three) times a day as needed (psoriasis) Apply thin film to rash 3 times a day until gone. Notify your provider if rash has not resolved after 14 days. AVOID use on face and genital areas. Active albuterol HFA (PROVENTIL HFA,VENTOLIN HFA,PROAIR HFA) 90 mcg/actuation inhaler every 6 hours Active Active Problems Problem Noted Date Diagnosed Date Inflammatory arthritis 09/29/2022 Overweight (BMI 25.0-29.9) 05/18/2021 Mass of breast 06/11/2012 Medical History Medical History Date Comments Crohn's disease (HCC) reportedly diagnosed clinically during her time in college. Never treated due to resolution. Social History Tobacco Use Types Packs/Day Years Used Date Smoking Tobacco: Former Tobacco Cessation:Counseling Given: Yes Personal Safety Answer Date Recorded Getting School Help Needed Not on file 02/23 Comments Unknown Sex and Gender Information Value Date Recorded Sex Assigned at Not on file Legal Sex Female 4:34 AM EVENING OR NIGHT NURSE SUPERVISOR Gender Identity Female 11/21/2019 10:58 AM CDT Sexual Orientation Straight 11/21/2019 10 :58 AM CDT Obstetrics History Last Filed Vital Signs Vital Sign Reading Time Taken Comments Blood Pressure 108/73 10/19/2023 11:17 AM CDT Pulse 75 10/19/2023 11:17 AM CDT Temperature 36.7 C (98.1 F) 10/19/2023 11:17 AM CDT Respiratory Rate - - Oxygen Saturation - - Inhaled Oxygen Concentration - - Weight 84.2 kg (185 lb 9.6 oz) 10/19/2023 11:17 AM CDT Height 162.6 cm (5' 4) 10/19/2023 11:17 AM CDT Body Mass Index 31.86 10/19/2023 11:17 AM CDT Plan of Treatment Health Maintenance Due Date Last Done Comments Cervical Cancer Screening 1978 Colon Cancer Screening-Colonoscopy 1978 Depression Screening 1978 DTaP/Tdap/Td Vaccine (1 - Tdap) 1989 Hepatitis B Screening 1996 Regular Well Visit/Exam 18-64 1996 Covid-19 Vaccine ( season) 2023 05/27/2020, 05/04/2020 Influenza Vaccine (#1) 2024 Breast Cancer Screening-Mammogram 12/25/2024 12/26/2023, 10/13/2022, 11/03/2021, Additional history exists Hepatitis C Screening Completed 02/11/2021 HPV Vaccines Aged Out No longer eligi ble based on patient's age to complete this topic Pneumococcal vaccine <65 Aged Out No longer eligible based on patient's age to complete this topic Procedures Procedure Name Priority Date/Time Associated Diagnosis Comments SCREENING MAMMOGRAM BILATERAL W COLIN Schedule Routine, Read Routine (OP Routine) 12/26/2023 11:38 AM CDT Screening mammogram, encounter for HEPATITIS C ANTIBODY Routine 02/11/2021 11:19 AM EVENING OR NIGHT NURSE SUPERVISOR Inflammatory arthritis from Last 3 Months or Most Recently Relevant to Health Maintenance Results * Screening Mammogram Bilateral W Colin (12/26/2023 11:38 AM CDT) Anatomical Region Laterality Modality Breast Bilateral Mammography Narrative 12/26/2023 3:21 PM CDT Mammogram Technique: Bilateral Digital Breast Tomosynthesis, Bilateral C-view 2D Screening mammogram. Views obtained: bilateral craniocaudal and bilateral mediolateral oblique. Computer Aided Detection was performed. Mammogram Findings: The present examination has been compared to prior imaging studies performed at [facility] on 09/16/2020, 11/03/2021 and 10/13/2022. There are scattered areas of fibroglandular density. There is no suspicious abnormality in either breast. Impression: There is no mammographic evidence of malignancy. Annual screening mammography is recommended. OVERALL FINAL ASSESSMENT: BI-RADS CATEGORY 1: Negative. Procedure Note Mary Anne Webb MD - 12/26/2023 Mammogram Technique: Bilateral Digital Breast Tomosynthesis, Bilateral C-view 2D Screening mammogram. Views obtained: bilateral craniocaudal and bilateral mediolateral oblique. Computer Aided Detection was performed. Mammogram Findings: The present examination has been compared to prior imaging studies performed at [facility] on 09/16/2020, 11/03/2021 and 10/13/2022. There are scattered areas of fibroglandular density. There is no suspicious abnormality in either breast. Impression: There is no mammographic evidence of malignancy. Annual screening mammography is recommended. OVERALL FINAL ASSESSMENT: BI-RADS CATEGORY 1: Negative. Self Screening Mammogram IMG MAMMO PROCEDURES Fi nal Result * Hepatitis C antibody (02/11/2021 11:19 AM EVENING OR NIGHT NURSE SUPERVISOR) Hep C Ab Nonreactive Nonreactive [facility] Comment:Antibodies to HCV no t detected. Does NOT exclude the possibility of recent exposure to HCV. Blood 02/11/2021 11:1 9 AM EVENING OR NIGHT NURSE SUPERVISOR 02/11/2021 5:05 PM EVENING OR NIGHT NURSE SUPERVISOR Alhaji Zayas DO LAB MICROBIOLOGY - GENER AL ORDERABLES Edited Result - Final [facility] Department [place] [address] from Last 3 Months or Most Recently Relevant to Health Maintenance Insurance [facility] Care Teams Immigration Coordinator Relationship Specialty Start Date End Date Fern Ann NP [address] [place] [address] REYNA HENDERSON [id number] PCP - General Nurse Practitioner 11/30/23
--- OUTSIDE RECORDS SUMMARY | 2024-09-17 09:22 | XMS_ITS | Referral Summary ---
Author Organization [facility] Address [address] [place] [address] Care Team Providers Care Dredge Lever Operator Name Role Phone Fern Ann NP Primary Care Provider [phone] Allergies Active Allergy Reactions Criticality Noted Date [...] (BMI 25.0-29.9) 05/18/2021 Mass of breast 06/11/2012 Social History Tobacco Use Types Packs/Day Years Used Date Smoking Tobacco: Former Tobacco Cessation:Counseling Given: Yes Personal Safety Answer Date Recorded Getting School Help Needed Not on file 02/23 Comments Unknown Sex and Gender Information Value Date Recorded Sex Assigned at Not on file Legal Sex Female 4:34 AM VALVE INSERTER Gender Identity Female 11/21/2019 10:58 AM CDT Sexual Orientation Straight 11/21/2019 10 :58 AM CDT Last Filed Vital Signs Vital Sign Reading [...] 10/19/2023 11:17 AM CDT Plan of Treatment Not on file Procedures Procedure Name Priority Date/Time Associated Diagnosis Comments SCREENING MAMMOGRAM BILATERAL W COLIN Schedule Routine, Read Routine (OP Routine) 12/26/2023 11:38 AM CDT Screening mammogram, encounter for HEPATITIS C ANTIBODY Routine 02/11/2021 11:19 AM VALVE INSERTER Inflammatory arthritis from Last 3 Months or [...] compared to prior imaging studies performed at [facility] on 09/16/2020, 11/03/2021 and [...] compared to prior imaging studies performed at [facility] on 09/16/2020, 11/03/2021 and 10/13/2022. There are scattered areas of fibroglandular density. There is no suspicious abnormality in either breast. Impression: There is no mammographic evidence of malignancy. Annual screening mammography is recommended. OVERALL FINAL ASSESSMENT: BI-RADS CATEGORY 1: Negative. us Self Screening Mammogram IMG MAMMO PROCEDURES Fi nal Result * Hepatitis C antibody (02/11/2021 11:19 AM VALVE INSERTER) Hep C Ab Nonreactive Nonreactive [facility] Comment:Antibodies to HCV no t detected. Does NOT exclude the possibility of recent exposure to HCV. Blood 02/11/2021 11:1 9 AM VALVE INSERTER 02/11/2021 5:05 PM VALVE INSERTER Alhaji Zayas DO LAB MICROBIOLOGY - GENER AL ORDERABLES Edited Result - Final [facility] Department [place] [address] from Last 3 Months or Most Recently Relevant to Health Maintenance Insurance [facility] OPEN ACCESS [facility] [place] [id number] Care Teams Dredge Lever Operator Relationship Specialty Start Date End Date Fern Ann NP [address] [place] [address] PCP - General Nurse Practitioner 11/30/23
--- OUTSIDE RECORDS SUMMARY | 2024-09-17 09:22 | XMS_ITS | Encounter Summary ---
Author Organization [facility] Address [address] [place] [address] Phone Care Team Providers Care Manpower Development Advisor Name Role Phone No, Physician Primary Care Provider [phone] Fern Ann NP Primary Care Provider [phone] Encounter Details Date Type Department Care Team (Late st Contact Info) Description 06/17/2021 Orders Only [facility] [phone] Scanning, Provider Social History Tobacco Use Types Packs/Day Years Used Date Smoking Tobacco: Former Comments Unknown Sex and Gender Information Value Date Recorded Sex Assigned at Not on file Legal Sex Female 4:34 AM AUTO CLUB TRAVEL COUNSELOR Gender Identity Female 11/21/2019 10:58 AM CDT Sexual Orientation Straight 11/21/2019 10 :58 AM CDT documented as of this encounter Plan of Treatment Not on file documented as of this encounter Procedures Procedure Name Priority Date/Time Associated Diagnosis Comments SCAN - RADIOLOGY/IMAGING 06/17/2021 documented in this encounter Results * SCAN - RADIOLOGY/IMAGING (06/17/2021) Anatomical Region Laterality Modality Other us Provider Scanning Final Result documented in this encounter Visit Diagnoses Not on filedocumented in this encounter Care Teams Manpower Development Advisor Relationship Specialty Start Date End Date No, Physician PCP - General 09/16/19 11/29/23 Fern Ann NP [address] [place] [address] PCP - General Nurse Practitioner 11/30/23 documented as of this encounter
[2024-09-17 18:31] LABS: Hematocrit 43.9 % (37.0-47.0); Hemoglobin 14.1 g/dL (12.0-15.0); Mean Corpuscular HGB Conc 32.1 g/dl (32-36); Mean Corpuscular Hemoglobin 29.1 pg (26-34); Mean Corpuscular Volume 90.5 fl (80-100); Platelet Count Result 333 k/mm3 (150-375); Red Blood Count 4.85 M/mm3 (4.2-5.4); White Blood Count 6.7 K/mm3 (4.5-10.0)
[2024-09-17 18:55] LABS: Alanine Aminotransferase 26 U/L (6-35); Albumin Level 4.3 g/dL (3.5-5.1); Alkaline Phosphatase 74 U/L (38-126); Anion Gap 8 mmol/L (4-12); Aspartate Amino Transferase 55 U/L (14-36); Bilirubin,Total 0.4 mg/dL (0.2-1.3); Blood Urea Nitrogen 12 mg/dL (7-17); Calcium 9.5 mg/dL (8.4-10.2); Carbon Dioxide 26 mmol/L (22-30); Chloride 103 mmol/L (98-107); Cholesterol 187 mg/dL (0-200); Estimated Glomerular Filt Rate > 60; Glucose 83 mg/dL (65-110); HDL Direct 45 mg/dL; Potassium 4.5 mmol/L (3.4-5.0); Sodium 137 mmol/L (137-145); Total Protein 7.5 g/dL (6.3-8.2); Triglycerides 120 mg/dL (<150)
[2024-09-17 19:27] LABS: Thyroid Stimulating Hormone 1.340 uIU/mL (0.465-4.680)
== END 2024-09-17 09:19 | disposition home or self-care (01) ==
LOC: ANHBWCLAB 09:19
PROVIDERS: PCP Nurse Practitioner Adult Health; Visit Provider Nurse Practitioner Adult Health
DX: Z00.00 Encounter for general adult medical examination without abnormal findings (principal)
CPT/HCPCS: 36415; 80053; 80061; 84443; 85027

== ENCOUNTER 2024-09-25 09:02 | Outpatient (CLI) | payer OTHER, SELFPAY ==
--- OUTSIDE RECORDS SUMMARY | 2024-09-25 09:07 | XMS_ITS | Encounter Summary ---
Author Organization [facility] Mister Spex of [facility] Address [address] [place] [address] Phone Care Team Providers Care Transit Driver Name Role Phone No, Physician Primary Care Provider [phone] Fern Ann NP Primary Care Provider [phone] Encounter Details Date Type Department Care Team (Late st Contact Info) Description 06/17/2021 Orders Only [facility] PMR [phone] Scanning, Provider Social History Tobacco Use Types Packs/Day Years Used Date Smoking Tobacco: Former Comments Unknown Sex and Gender Information Value Date Recorded Sex Assigned at Not on file Legal Sex Female 4:34 AM PRODUCT LISTER Gender Identity Female 11/21/2019 10:58 AM CDT [...] on filedocumented in this encounter Care Teams Transit Driver Relationship Specialty Start Date End Date No, Physician PCP - General 09/16/19 11/29/23 Fern Ann NP [address] [place] [address] PCP - General Nurse Practitioner 11/30/23 documented as of this encounter
--- OUTSIDE RECORDS SUMMARY | 2024-09-25 09:07 | XMS_ITS | Clinical Summary ---
Author Organization [facility] Address [address] [place] [address] Care Team Providers Care Um Nurse Name Role Phone Fern Ann NP Primary Care Provider [phone] Allergies Active Allergy Reactions Criticality Noted Date [...] (BMI 25.0-29.9) 05/18/2021 Mass of breast 06/11/2012 Encounters Date Type Department Care Team Description 09/23/2024 11:15 AM CDT Office Visit [facility] Rheumatology [address] [place] [address] [place] [address] Brennon Swann MD Inflammatory arthritis (Primary Dx); Urticaria from Last 3 Months Medical History Medical History Date Comments Crohn's disease (HCC) reportedly diagnosed clinically during her time in college. Never treated due to resolution. Social History Tobacco Use Types Packs/Day Years Used Date Smoking Tobacco: Former Comments Unknown Sex and Gender Information Value Date Recorded Sex Assigned at Not on file Legal Sex Female 4:34 AM DEICER ELEMENT WINDER MACHINE Gender Identity Female 11/21/2019 10:58 AM CDT Sexual Orientation Straight 11/21/2019 10 :58 AM CDT Obstetrics History Last Filed Vital Signs Vital Sign Reading Time Taken Comments Blood Pressure 114/75 09/23/2024 11:43 AM CDT Pulse 85 09/23/2024 11:43 AM CDT Temperature 36.7 C (98 F) 09/23/2024 11:43 AM CDT Respiratory Rate - - Oxygen Saturation - - Inhaled Oxygen Concentration - - Weight 84.8 kg (187 lb) 09/23/2024 11:43 AM CDT Height 162.6 cm (5' 4) 09/23/2024 11:43 AM CDT Body Mass Index 32.1 09/23/2024 11:43 AM CDT Plan of Treatment Health Maintenance [...] HEPATITIS C ANTIBODY Routine 02/11/2021 11:19 AM DEICER ELEMENT WINDER MACHINE Inflammatory arthritis from Last 3 Months or [...] compared to prior imaging studies performed at [facility] on 09/16/2020, 11/03/2021 and 10/13/2022. There are [...] compared to prior imaging studies performed at [facility] on 09/16/2020, 11/03/2021 and 10/13/2022. There are scattered areas of fibroglandular density. There is no suspicious abnormality in either breast. Impression: There is no mammographic evidence of malignancy. Annual screening mammography is recommended. OVERALL FINAL ASSESSMENT: BI-RADS CATEGORY 1: Negative. Self Screening Mammogram IMG MAMMO PROCEDURES Fi nal Result * Hepatitis C antibody (02/11/2021 11:19 AM DEICER ELEMENT WINDER MACHINE) Hep C Ab Nonreactive Nonreactive LIAM DUGAN Comment:Antibodies to HCV no t detected. Does NOT exclude the possibility of recent exposure to HCV. Blood 02/11/2021 11:1 9 AM DEICER ELEMENT WINDER MACHINE 02/11/2021 5:05 PM DEICER ELEMENT WINDER MACHINE Alhaji Zayas DO LAB MICROBIOLOGY - GENER AL ORDERABLES Edited Result - Final [facility] [place] [address] from Last 3 Months or Most Recently Relevant to Health Maintenance Insurance [facility] Ticket Hoy OPEN ACCESS [facility] [address] [place] [address] [facility] Care Teams Um Nurse Relationship Specialty Start Date End Date Fern Ann NP [address] [place] [address] PCP - General Nurse Practitioner 11/30/23
--- OUTSIDE RECORDS SUMMARY | 2024-09-25 09:07 | XMS_ITS | Clinical Summary ---
Author Organization [employer] [facility] Address [address] Tapia: Epic Prelude ADT [place] [address] Care Team Providers Care Machine Shop Helper Name Role Phone Unavailable Primary Care Provider Unavailabl e Medications predniSONE (DELTASONE) 10 mg tablet Take 4 tablets (40 mg) by mouth daily for 5 days, THEN 2 tablets (20 mg) daily for 5 days, THEN 1 tablet (10 mg) daily for 10 days. 40 Tablet 04/26/2022 5:59 PM FAMILY MEMBER CARETAKER 3 Active HYDROcodone-marty taminophen (NORCO) 5-325 mg tablet Take 1 tablet by mouth every 6 hours as needed for pain 14 Tablet 4 Active HYDROcodone-marty taminophen (NORCO) 5-325 mg tablet Take 1 Tablet by mouth every 4 hours as needed for pain. Max Daily Amount: 6 Tablets 20 Tablet 02/25/2024 3:08 PM FAMILY MEMBER CARETAKER 4 Active phentermine (ADIPEX P) 37.5 mg tablet Take 1 Tablet (37.5 mg) by mouth daily. MUST ADMINISTER 30 MINUTES BEFORE OR 1-2 HOURS AFTER BREAKFAST. 30 Tablet 5 Active Encounters Date Type Department Care Team Description 08/05/2024 External Device Data [facility] ABSTRACTION Provider, Abstract from Last 3 Months Social History Tobacco Use Types Packs/Day Years Used Date Smoking Tobacco: Never Assessed Comments Unknown Sex and Gender Information Value Date Recorded Sex Assigned at Not on file Legal Sex Female 3:27 PM CDT Gender Identity Not on file Sexual Orientation Not on file Plan of Treatment Health Maintenance Due Date Last Done Comments DTAP/TDAP/TD VACCINES (1 - Tdap) 1997 HEPATITIS B VACCINES (1 of 3 - 19+ 3-dose series) 1997 HPV/Cotest (21-29) 08/17/1999 CERVICAL CANCER SCREENING 2008 HPV/Cotest (30-65) 2008 PAP SMEAR 2008 BREAST CANCER SCREENING 2018 COLORECTAL SCREENING 08/17/2023 Colorectal Cancer Screening 08/17/2023 FIT-DNA Q 3 years 08/17/2023 FIT/FOBT Q 1 year 08/17/2023 Flex Sig/CT Colonography Q 5 years 08/17/2023 INFLUENZA VACCINE (#1) 2024 HPV VACCINES Aged Out No longer eligi ble based on patient's age to complete this topic Insurance [employer] (INTERNAL) [facility] [employer]
--- OUTSIDE RECORDS SUMMARY | 2024-09-25 09:07 | XMS_ITS | Patient Health Record ---
Author Organization [facility] [employer] [place] ([address]) Address [address] [place] [address] Care Team Providers Care Family Assistant Name Role Phone Dr. 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 Problem Chronic migraine without aura, non-refractory (disorder) (699703479165912) Migraine without aura, not intractable, without status migrainosus (G43.009) Active confirmed Problem Migraine with aura (0685184) Migraine with aura, not intractable, without status migrainosus (G43.109) Active confirmed Problem Chronic migraine without aura, non-intractable (411918566468369) Chronic migraine without aura, not intractable, without status migrainosus (G43.709) Active confirmed Problem Arthralgia of temporomandibular joint (88258193) Arthralgia of right temporomandibular joint (M26.621) Active confirmed Vital Signs Height 65 in 03/27/2024 Encounters Encounter Location Date Provider Diagnosis [facility] [address] [place] [address] [place] [address] 09/27/2023 Clarence Wu Idiopathic orofacial dystonia G24.4 [facility] [address] [place] [phone] 12/20/2023 Joyce Gregg Idiopathic orofacial dystonia G24.[address] [address] 03/27/2024 Joyce Gregg Idiopathic orofacial dystonia G24.[address] [address] 06/19/2024 Joyce Gregg Idiopathic orofacial dystonia G24.4 and Arthralgia of right temporomandibular joint M26.621 [facility] [address] [place] [address] 09/26/2023 Clarence Wu [facility] [address] [place] [address] 07/09/2024 Joyce Gregg Assessments Encounter Date Diagnosis (ICD Code) Assessment Notes Treatment Notes Treatment Clinical Notes Section Notes 09/27/2023 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 The patient is experiencing less jaw pain. She has jaw clenching dystonia (oromandibula r dystonia). She describes irena jaw locking up to where she couldn't voluntarily open her jaw, also a sensory trick if she rubbed her right masseter it would then loosen up somewhat. She is an appopriate candidate for botulinum toxin as she has not had adequate relief with a night splint. Her remote jaw injury likely predisposed her to develop this. 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 Requesting to switch patient from Botox (onabotulinumto xinA) 100 units to DYSPORT (abobotulinumto xinA) 250 units for idiopathic orofacial dystonia (G24.4) management. Send PA for Dysport 250 units. She has jaw clenching dystonia (oromandibula r dystonia). She describes irena jaw locking up to where she couldn't voluntarily open her jaw, also a sensory trick if she rubbed her right masseter it would then loosen up somewhat. Her remote jaw injury likely predisposed her to develop this. She has responded to botulinum toxin injections 06/19/2024 Arthralgia of right temporomandibular joint (ICD-10 - M26.621) Symptoms have improved with botox injections. She has jaw clenching dystonia (oromandibula r dystonia). She describes irena jaw locking up to where she couldn't voluntarily open her jaw, also a sensory trick if she rubbed her right masseter it would then loosen up somewhat. Her remote jaw injury likely predisposed her to develop this. She has responded to botulinum toxin injections 03/27/2024 Other This has improved with Xeomin injections. The patient is experiencing less jaw pain. She has jaw clenching dystonia (oromandibula r dystonia). She describes irena jaw locking up to where she couldn't voluntarily open her jaw, also a sensory trick if she rubbed her right masseter it would then loosen up somewhat. She is an appopriate candidate for botulinum toxin as she has not had adequate relief with a night splint. Her remote jaw injury likely predisposed her to develop this. 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
--- OUTSIDE RECORDS SUMMARY | 2024-09-25 09:07 | XMS_ITS | Referral Summary ---
Author Organization [facility] Address [address] [place] [address] Care Team Providers Care Drapery Hanger Name Role Phone Fern Ann NP Primary Care Provider [phone] Encounters Date Type Department Care Team Description 09/23/2024 11:15 AM CDT Office Visit [facility] Rheumatology [address] [facility] 5[address] [place] [address] [place] [address] Brennon Swann MD Inflammatory arthritis (Primary Dx); Urticaria from Last 3 Months Allergies Active Allergy Reactions Criticality Noted Date [...] on file Legal Sex Female 4:34 AM SENIOR CONTRACT SPECIALIST Gender Identity Female 11/21/2019 10:58 AM CDT [...] 09/23/2024 11:43 AM CDT Plan of Treatment Not on file Procedures Procedure Name Priority Date/Time Associated Diagnosis Comments SCREENING MAMMOGRAM BILATERAL W COLIN Schedule Routine, Read Routine (OP Routine) 12/26/2023 11:38 AM CDT Screening mammogram, encounter for HEPATITIS C ANTIBODY Routine 02/11/2021 11:19 AM SENIOR CONTRACT SPECIALIST Inflammatory arthritis from Last 3 Months or [...] compared to prior imaging studies performed at [facility] on 09/16/2020, 11/03/2021 and 10/13/2022. There [...] compared to prior imaging studies performed at [facility] on 09/16/2020, 11/03/2021 and 10/13/2022. There are scattered areas of fibroglandular density. There is no suspicious abnormality in either breast. Impression: There is no mammographic evidence of malignancy. Annual screening mammography is recommended. OVERALL FINAL ASSESSMENT: BI-RADS CATEGORY 1: Negative. us Self Screening Mammogram IMG MAMMO PROCEDURES Fi nal Result * Hepatitis C antibody (02/11/2021 11:19 AM SENIOR CONTRACT SPECIALIST) Hep C Ab Nonreactive Nonreactive LIAM MALONE Comment:Antibodies to HCV no t detected. Does NOT exclude the possibility of recent exposure to HCV. Blood 02/11/2021 11:1 9 AM SENIOR CONTRACT SPECIALIST 02/11/2021 5:05 PM SENIOR CONTRACT SPECIALIST Alhaji Zayas DO LAB MICROBIOLOGY - GENER AL ORDERABLES Edited Result - Final [facility] Department [place] [address] from Last 3 Months or Most Recently Relevant to [place] [id number] [facility] CMR [facility] OPEN ACCESS [facility] HMO/PPO Address: [facility] [id number] [place] [address] [address] [place] [address] [facility] [place] [address] [address] [place] [address] [facility] [place] [address] Care Teams Drapery Hanger Relationship Specialty Start Date End Date Fern Ann NP [address] [place] [address] PCP - General Nurse Practitioner 11/30/23
[2024-10-15 16:46] VITALS: BMI 31.2
--- NOTE | 2024-10-15 16:46 | P.SLEEP_ITS ---
Sleep Study - Home Unattended Date of Study: 09/25/24 Ordering Provider: Fern Ann APRN Interpreting Provider: DO Tay Zamora Sleep Study Type: Watch PAT Height: 1.63 m Weight: 82.554 kg Body Mass Index: 31.2 Neck Circumference (inches): 14 [place]: 6 Reason for Sleep Study snoring, daytime hypersomnia Sleep History The patient is a 44-year-old female who had a sleep study ordered by her primary care provider for evaluation of sleep apnea. The patient admits to snoring loudly, excessive daytime sleepiness, and trouble falling asleep. She denies having interruptions in breathing while asleep. She denies choking or gasping at night. She denies having trouble breathing on her back. She denies morning headaches. She does have a dry or sore mouth/throat in the morning. She denies nocturnal heartburn. She denies nocturia. She does have difficulty staying asleep and difficulty returning to sleep if she wakes up throughout the night. She denies any hypnotic or sedative use. She denies feeling anxious about sleep. She does feel tired or sleepy during the day and feels tired in the morning. She does have the urge to fall asleep during the day. She denies feeling drowsy while driving. She denies sleep paralysis, cataplexy, and hypnagogic/hypnopompic hallucinations. She does clench or grind her teeth. She denies kicking or jerking her legs excessively and denies having a restless feeling in her legs. She goes to bed at 11:30 p.m. on workdays and at midnight on her days off. It takes her 30 minutes to fall asleep. She gets 7 hours of sleep on workdays and 8 hours on her days off. Her sleep is a little more restorative on days off. She denies taking any planned naps. She denies dream-enacting behavior. She denies sleepwalking. She consumes 1 to 2 cups of a caffeinated beverage per day. She denies tobacco use. She consumes 2 alcoholic beverages 1 to 2 nights per week. She exercises 1 to 2 nights per week. PMFSH Past Medical History Medical History Post endometrial ablation syndrome delivery delivered Arthritis Asthma Surgical History Surgical History Hx of biopsy Status post dilatation and curettage History of tubal ligation Family History Family History Grandparent Depression Hypertension Family history of eczema Family history of osteoarthritis Cerebrovascular accident Family history of hearing loss Mother Hypertension Patient's mother is in good health Family history of migraine headaches Sibling Asthma Patient's brother is in good health Family history of allergic disorder Family history of kidney disease Father Family history of osteoarthritis Patient's father is in good health Hypertension Malignant neoplasm of prostate Grandparent Hypertension Diabetes mellitus Heart disease Cerebrovascular accident Grandparent Hypertension Heart disease History of ETOH abuse Social History Social History Years smoked: 3 Smoking status: Never smoker Tobacco type: cigarettes Alcohol intake: current Drinks per week: 2 Substance use: never Substance use type: does not use Do You Feel Safe in your Home?: Yes Lack of Transportation: No Lack of Food: Never True Current Housing: I Have Housing Concerned About Future Housing: No Difficulty Paying Gas/Electric Bills: No Difficulty Paying for Meds: No Currently Unemployed: No Education: Bachelor's Degree Difficulty w/ Childcare or Family Care: No Living arrangements: with family 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 Gender identity (if verbalized by the patient): Female Spiritual care concerns: No Agree to blood products: Yes Medications Home Medications ?Medication ?Instructions ?Recorded ?Confirmed ?Type multivitamin (Daily Multi-Vitamin 1 tablet PO DAILY 09/04/23 09/17/24 History tablet) L.acidophil,rhamnosus-B.breve,longum 1 cap PO DAILY 02/20/24 09/17/24 History 20 billion cell sprinkle capsule (Probiotic) omega-3 fatty acids 1,000 mg 1,000 mg PO DAILY 02/20/24 09/17/24 History capsule phentermine 37.5 mg tablet 37.5 mg PO DAILY #30 tabs 09/22/24 09/22/24 Rx Sleep Procedure The sleep study was completed using CoverooT a technically adequate device with seven channels: peripheral arterial tone, actigraphy, body position, snore, respiratory movement, pulse oximetry, sleep staging, and heart rate. Prior to using the device, the patient received verbal and written instructions for its application and was provided with the help desk phone number for additional telephonic instruction with 24-hour availability of qualified personnel to answer questions. The study was scored using CMS guidelines. Sleep Architecture The total recording time is 8 hrs, 34 min. The total sleep time is 7 hrs, 46 min. Sleep latency is 17 minutes. REM latency is 40 minutes. The patient had 8 episodes of waking. Sleep architecture shows 17.6% deep sleep, 51.5% light sleep, and (as % Total Sleep Time) showed NREM (Light 51.5%; Deep 17.6%), and a 30.9% stage REM. The patient spent 19.2% of total sleep time in the supine position. Sleep efficiency was 90.66. Respiratory Analysis The overall AHI (pAHI 4%:) is 0.4. The overall AHI (pAHI 3%:) is 3.0. The central AHI is 0.0. The AHI was 1.7 in NREM and 5.9 in REM sleep. The AHI was 4.0 in Supine and 2.7 in Non-supine sleep. Percent of Low[place] David respirations is 0.0. Oximetry Data The oxygen desaturation index (RAUDEL 4%:) is 0.5. The mean saturation is 96%, and the lowest saturation is 90%. Time spent with saturation < 88% is 0.0 minutes. Snoring Profile Snoring average intensity is 44 dB. The patient snored above 45 decibels for 87.3 minutes, 18.7% of sleep time. Cardiac Profile The average pulse rate is 72 beats per minutes. The lowest pulse rate is 56 bpm. The highest pulse rate reported is 109 bpm. Atrial fibrillation was not detected. No premature beats occurred. Assessment and Plan Assessment and Plan (1) Snoring: Code(s): R06.83 - Snoring Status: Acute Assessment and Plan: The patient had an overall AHI of 0.4 with desaturation down to 90%. This is not consistent with sleep-disordered breathing. If there are further concerns for a sleep disorder, I recommend that the patient have a split study with the use of a hypnotic to ensure we obtain enough sleep data. Data The data obtained during this sleep study is adequate for interpretation. Certification This sleep study has been reviewed by a board certified sleep medicine physician.
== END 2024-09-26 10:04 | disposition home or self-care (01) ==
PROVIDERS: PCP Nurse Practitioner Adult Health; Visit Provider Nurse Practitioner Adult Health
DX: G47.10 Hypersomnia, unspecified (principal); R06.83 Snoring
CPT/HCPCS: 95800